=== PATIENT | male | born 1960 | race Caucasian/White ===

== ENCOUNTER 2018-03-11 19:16 | Emergency (ER) | payer BC ==
[~2018-03-11] VITALS: Ht 172.7 cm; Wt 67.8 kg
[2018-03-11] MEDS ORDERED: LORazepam 2 mg/ml vial IV ONE (19:45)
[2018-03-11] MEDS ORDERED: metoclopramide 5 mg/ml inj IV ONE (19:45)
[2018-03-11] MEDS ORDERED: ketorolac trometh. 30mg/ml inj. IV ONE (19:45)
[2018-03-11] MEDS ORDERED: diphenhydrAMINE 50 mg/ml inj IV ONE (19:45)
[2018-03-11] MEDS ORDERED: normal saline 1000ML IV soln IVB ONE (19:45)
[2018-03-11] MEDS ORDERED: morphine 4 MG/ML inj SYRINge IV ONE (20:15)
[2018-03-11] MEDS ORDERED: SUMA25TA35 PO (20:45)
[2018-03-11 21:05] VITALS: BP 127/72
== END 2018-03-11 21:06 | disposition home or self-care (01) ==
LOC: ER 19:16
DX: G43.909 Migraine, unspecified, not intractable, without status migrainosus (principal); Z79.899 Other long term (current) drug therapy
CPT/HCPCS: 96361; 96374; 96375; 99284; J1200; J1885; J2060; J2270; J2765; J7030

== ENCOUNTER 2018-06-02 12:35 | Emergency (ER) | payer BC ==
[~2018-06-02] VITALS: Ht 172.7 cm; Wt 66.5 kg
[2018-06-02] MEDS ORDERED: LORazepam 2 mg/ml vial IV ONE (13:20)
[2018-06-02] MEDS ORDERED: proCHLORperazine 10 MG/2 ml inj IV ONE (13:20)
[2018-06-02] MEDS ORDERED: ketorolac trometh. 30mg/ml inj. IV ONE (13:20)
[2018-06-02] MEDS ORDERED: diphenhydrAMINE 50 mg/ml inj IV ONE (13:20)
[2018-06-02] MEDS ORDERED: valproate sod inj 500 MG in normal saline 100ml IV soln 95 ML IV ONE (15:50)
[2018-06-02 16:55] VITALS: BP 123/79
== END 2018-06-02 17:22 | disposition home or self-care (01) ==
LOC: ER 12:35
DX: G43.909 Migraine, unspecified, not intractable, without status migrainosus (principal)
CPT/HCPCS: 96365; 96375; 99284; J0780; J1200; J1885; J2060; J7030

== ENCOUNTER 2018-10-26 13:05 | Emergency (ER) | payer BC ==
[~2018-10-26] VITALS: Ht 172.7 cm; Wt 68.2 kg
[2018-10-26 13:40] VITALS: BP 120/83
[2018-10-26] MEDS ORDERED: HYDR-4383 PO (18:01)
[2018-10-26] MEDS ORDERED: HYDROcodone/acetaminophen 5mg/325mg tablet PO ONE (18:05)
== END 2018-10-26 18:49 | disposition home or self-care (01) ==
LOC: ER 13:06
DX: S62.316A Displaced fracture of base of fifth metacarpal bone, right hand, initial encounter for closed fracture (principal); G43.909 Migraine, unspecified, not intractable, without status migrainosus; Z79.899 Other long term (current) drug therapy; W22.8XXA Striking against or struck by other objects, initial encounter; Y93.89 Activity, other specified; Y92.89 Other specified places as the place of occurrence of the external cause; Y99.8 Other external cause status
CPT/HCPCS: 29125; 73130; 99283